=== PATIENT | female | born 1970 | race Caucasian/White ===

== ENCOUNTER → 2019-11-07 | Outpatient (CLI) | payer OTHER | LOC: COL.RAD 07:54 | DX: R19.7 Diarrhea, unspecified (principal) | CPT/HCPCS: A9541 ==

== ENCOUNTER → 2020-06-19 | Outpatient (CLI) | payer BC | LOC: COL.RAD | DX: G83.81 Brown-Sequard syndrome (principal); M54.42 Lumbago with sciatica, left side; M54.41 Lumbago with sciatica, right side; M43.16 Spondylolisthesis, lumbar region; M47.816 Spondylosis without myelopathy or radiculopathy, lumbar region; Z98.1 Arthrodesis status | CPT/HCPCS: A9585 ==

== ENCOUNTER → 2023-09-14 | Outpatient (CLI) | payer MEDICARE ==
[~2023-09-14] MED LIST: MOBIC15 MG PO; QUESTRAN4 GM/9 GM PO; VALIUM 5MG T5 MG/TAB PO
== END ==
LOC: COL.RAD 11:06
DX: M51.36 Other intervertebral disc degeneration, lumbar region (principal)

== ENCOUNTER → 2024-05-17 | Outpatient (CLI) | payer MEDICARE ==
[~2024-05-17] MED LIST changes: +ASPIRIN E.C. 8181 MG PO; +COLESTID 1GM1 G PO
== END ==
LOC: MHCPAIN 11:51
DX: M47.817 Spondylosis without myelopathy or radiculopathy, lumbosacral region (principal); M54.50 Low back pain, unspecified

== ENCOUNTER 2024-07-07 12:26 | Emergency (ER) | payer MEDICARE ==
[~2024-07-07] VITALS: Ht 152.4 cm; Wt 51.4 kg
[2024-07-07 12:37] VITALS: BP 154/99
[2024-07-07 14:33] VITALS: PULSE 58; TEMP 98.1
== END 2024-07-07 15:05 | disposition home or self-care (01) ==
LOC: COL.ER 12:26
DX: F07.81 Postconcussional syndrome (principal)

== ENCOUNTER → 2024-07-18 | Outpatient (CLI) | payer MEDICARE | LOC: MHCPAIN 12:30 | DX: M47.816 Spondylosis without myelopathy or radiculopathy, lumbar region (principal); M48.061 Spinal stenosis, lumbar region without neurogenic claudication; M43.16 Spondylolisthesis, lumbar region; G83.81 Brown-Sequard syndrome; M54.50 Low back pain, unspecified; Z98.1 Arthrodesis status | CPT/HCPCS: G0463 ==

== ENCOUNTER 2024-08-08 11:41 | Emergency (ER) | payer MEDICARE ==
[~2024-08-08] VITALS: Ht 152.4 cm; Wt 50.5 kg
[2024-08-08 11:49] VITALS: TEMP 97.8
[2024-08-08 15:56] VITALS: BP 117/65; PULSE 75
== END 2024-08-08 15:58 | disposition home or self-care (01) ==
LOC: COL.ER 11:41
DX: R51.9 Headache, unspecified (principal)

== ENCOUNTER → 2024-08-30 | Outpatient (CLI) | payer MEDICARE ==
[~2024-08-30] VITALS: Ht 152.4 cm; Wt 51.0 kg
[~2024-08-30] MED LIST changes: +Gadoterate 15 ML VIAL IV ONE; +Glycopyrrolate 0.2 MG/ML 1 ML VIAL ONE; +LR 1,000 ML IV SCH; +Lidocaine PF 2% (20 MG/ML) 5 ML VIAL ONE
[2024-08-30 11:15] VITALS: BP 126/6; PULSE 70; TEMP 97.9
[2024-08-30 13:12] VITALS: BP 138/68; PULSE 78
[2024-08-30 13:15] VITALS: BP 115/74; PULSE 70
[2024-08-30 13:30] VITALS: BP 109/76; PULSE 68
[2024-08-30 13:45] VITALS: BP 114/78; PULSE 66
--- NOTE | 2024-08-30 14:35 | NUR ---
1350--PATIENT HAS COMPLETED HER RECOVERY PERIOD. PATIENT IS AWAKE AND ALERT AND ORIENTED. PATIENT GOT DRESSED BY HERSELF. IV WAS REMOVED WITHOUT ISSUE. PATIENT DECLINED WHEELCHAIR ESCORT AND WRITTEN D/C INSTRUCTIONS AND CAN TEACH BACK D/C INSTRUCTIONS. PATIENT AND HER RIDE ESCORTED OUT OF RADIOLOGY AMBULATORY. PATIENT AND HER RIDE DECIDED TO GO TO THE [facility] BEFORE LEAVING AND NURSE ESOCRTED THEM THERE. ALL NEEDS MET.
== END ==
LOC: COL.RAD 10:04
DX: M48.02 Spinal stenosis, cervical region (principal); G83.81 Brown-Sequard syndrome; R90.82 White matter disease, unspecified; I67.82 Cerebral ischemia; M47.812 Spondylosis without myelopathy or radiculopathy, cervical region
CPT/HCPCS: A9575; J2704; J7120